=== PATIENT | male | born 1945 | race Caucasian/White ===

== ENCOUNTER 2017-07-14 03:29 | Inpatient (IN) | payer MEDICARE ==
[~2017-07-14] VITALS: Ht 177.8 cm; Wt 54.4 kg
[2017-07-14] MEDS ORDERED: ASPI-605 PO (03:36)
[2017-07-14] MEDS ORDERED: LANS15CA13 PO (03:36)
[2017-07-14] MEDS ORDERED: CHOL20004 PO (03:36)
[2017-07-14] MEDS ORDERED: CYAN10009 PO (03:36)
[2017-07-14] MEDS ORDERED: SIMV10TA6 PO (03:36)
--- NOTE | 2017-07-14 03:55 | NUR ---
PATIENT REFUSED CT HEAD. DR WANG INTO EVAL PATIENT
--- NOTE | 2017-07-14 03:59 | NUR ---
MEDICALLY CLEARED BY DR WANG
[2017-07-14] MEDS ORDERED: LORAZEPAM 0.5 MG TABLET PO PRN (04:15)
[2017-07-14] MEDS ORDERED: TEMAZEPAM 7.5 MG CAPSULE PO PRN (04:15)
[2017-07-14] MEDS ORDERED: MAG HYDROX/AL HYDROX/SIMETH 30 ML LIQUID UDC PO PRN (04:15)
[2017-07-14] MEDS ORDERED: ACETAMINOPHEN 325 MG TABLET PO PRN (04:15)
[2017-07-14 04:20] VITALS: BP 151/101
--- NOTE | 2017-07-14 05:31 | NUR ---
received to care, at 0410, on a 72 hour hold for danger to self, from the emergency room, a transfer from [facility]. according to the hold, he lives with his sister. he stated that he took an unknown amount of over the counter sleeping aids in a suicide attempt, but his sister found him, and took him to the ER. he stated that he had been despondent over aging and medical issues, and that he has had several failed suicide attempts, in the past, the last being 13 years ago, in a similar attempt, and "before that", by laceration to the neck, and other overdose attempts. upon arrival, he denied current suicidal ideations, and agreed to contract for safety, while in the hospital. he was offered assistance to go to bed, but declined, stating he would rather sit at the desk. pt remains calm and cooperative. currently being assisted with a shower. no distress noted.
[2017-07-14 08:00] VITALS: BP 128/93
[2017-07-14] MEDS ORDERED: INFLUENZA VACCINE 2017-2018 0.5 ML DISP.SYRIN IM ONE (09:00)
[2017-07-14] MEDS ORDERED: SIMVASTATIN 10 MG TABLET PO SCH (10:45)
--- NOTE | 2017-07-14 10:47 | NUR ---
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
--- NOTE | 2017-07-14 12:41 | NUR ---
Initial Discharge Instructions: Pt currently lives at home [[address] [place] [address]; [phone]]. Pt did not state if he lives with anyone, but according to chart, he lives with his sister, Lou. It is unclear at this time if pt would like to return home upon discharge. SW left message for Lou to discuss discharge plans ([phone]). ELIE will speak with pt, family, and MD regarding appropriate discharge plans. SW will form a safe and proper discharge plan.
[2017-07-14] MEDS: MAGNESIUM HYDROXIDE 30 ML LIQUID UDC PO PRN (14:38)
[2017-07-14] MEDS: ASPIRIN EC 81 MG TABLET.DR PO SCH (14:39)
[2017-07-14 16:00] VITALS: BP 138/89
[2017-07-14] MEDS: MIRTAZAPINE 15 MG TABLET PO SCH (20:23)
[2017-07-14] MEDS: SIMVASTATIN 10 MG TABLET PO SCH (20:32)
[2017-07-14 21:39] VITALS: BP 113/76
--- NOTE | 2017-07-14 22:00 | NUR ---
received to care, lying in bed, isolating by self, but pleasant upon approach. is superficial, denying having any depression, SI, or desire to harm self. remains suspicious and paranoid, wanting to see his medications in the package, before he opens it. refused his zocor, but took remeron. as of 2199, he appears to be awake, but has been sleeping intermittently. no distress noted. will continue to monitor closely.
--- NOTE | 2017-07-15 06:00 | NUR ---
slept 5.5 hours. continues to sleep. no distress noted.
[2017-07-15 07:30] VITALS: BP 119/93
[2017-07-15] MEDS: ASPIRIN EC 81 MG TABLET.DR PO SCH (08:58)
[2017-07-15] MEDS: CYANOCOBALAMIN 1,000 MCG TABLET PO SCH (08:58)
[2017-07-15 15:29] VITALS: BP 102/74
[2017-07-15 20:00] VITALS: BP 109/80
[2017-07-15] MEDS: MIRTAZAPINE 15 MG TABLET PO SCH (20:33)
[2017-07-15] MEDS: SIMVASTATIN 10 MG TABLET PO SCH (20:33)
[2017-07-16 06:33] LABS: BASOPHILS % (AUTO) 0.3 % (0.0-2.0); EOSINOPHILS % (AUTO) 0.6 % (0.0-7.0); HEMATOCRIT 41.3 % (36.7-47.1); HEMOGLOBIN 13.8 g/dL (12.5-16.3); LYMPHOCYTES # (AUTO) 0.8 K/uL (20.0-40.0); LYMPHOCYTES % (AUTO) 13.1 % (20.5-51.5); MEAN CORPUSCULAR HGB CONC 33 g/dL (32.5-36.3); MEAN CORPUSCULAR VOLUME 90.1 fL (73.0-96.2); MONOCYTES # (AUTO) 0.6 K/uL (2.0-10.0); MONOCYTES % (AUTO) 9.5 % (0.0-11.0); NEUTROPHILS # (AUTO) 4.9 K/uL (1.8-8.9); NEUTROPHILS % (AUTO) 76.5 % (38.5-71.5); PLATELET COUNT (AUTO) 141 K/uL (152-348); RED BLOOD CELL COUNT(AUTO) 4.58 MIL/uL (4.06-5.63); WHITE BLOOD COUNT (AUTO) 6.4 K/uL (3.6-10.2)
[2017-07-16 06:56] LABS: CARBON DIOXIDE 32 mmol/L (21-32); CHLORIDE 100 mmol/L (98-107); CREATININE 1.7 mg/dL (0.6-1.3); GLUCOSE 127 mg/dL (74-106); POTASSIUM 4.1 mmol/L (3.5-5.1); UREA NITROGEN, BLOOD 19 mg/dL (7-18)
--- NOTE | 2017-07-16 06:56 | NUR ---
GPS: REMAIN UNCOOPERATIVE WITH CARE AND MEDICATION.SLEPT ONLY 30 MIN THROUGH THE NIGHT. PARANOID WONDER AROUND IN AND OUT THE ROOM. CONTINUE PLAN OF CARE.
[2017-07-16 07:30] VITALS: BP 109/67
[2017-07-16] MEDS: CYANOCOBALAMIN 1,000 MCG TABLET PO SCH (08:42)
[2017-07-16] MEDS: ASPIRIN EC 81 MG TABLET.DR PO SCH (08:42)
[2017-07-16] MEDS: MAGNESIUM HYDROXIDE 30 ML LIQUID UDC PO PRN (13:19)
[2017-07-16 15:00] VITALS: BP 96/67
[2017-07-16 20:02] VITALS: BP 147/92
[2017-07-16] MEDS: MIRTAZAPINE 15 MG TABLET PO SCH (20:55)
[2017-07-16] MEDS: SIMVASTATIN 10 MG TABLET PO SCH (20:55)
[2017-07-16 21:30] VITALS: BP 121/77
--- NOTE | 2017-07-16 22:00 | NUR ---
Pt REFUSED HS MEDICATIONS DESPITE 2 ATTEMPTS BY RN AT ADMINISTERING THEM. EXTENSIVE PROMPTING AND ENCOURAGEMENT GIVEN. EDUCATION PROVIDED REGARDING DOSE, INDICATION, FREQUENCY AND REPORTABLE S/E GIVEN, Pt STILL REFUSED, STATING, "I JUST WANT TO SEE IF I LIVE THROUGH THE NIGHT, IT'S DOUBTFUL." Pt GUARDED AND WOULD NOT ELABORATE ON THE REASON FOR SAYING HE MAY NOT LIVE THROUGH THE NIGHT. Pt DID AGREE TO CFS 3 TIMES THROUGHOUT THE SHIFT. Pt WAS ASKED SEVERAL TIMES BY RN D/T HESITATION, UNRELIABILITY AND H/O MULTIPLE SA.
--- NOTE | 2017-07-16 22:32 | NUR ---
Pt STATED HE HAD A HEADACHE AND AGREED TO TAKE TYLENOL. IT WAS PULLED FROM [employer], THEN Pt CHANGED HIS MIND, AND STATED HE NO LONGER NEEDED IT.
[2017-07-17] MEDS: ASPIRIN EC 81 MG TABLET.DR PO SCH (08:21)
[2017-07-17] MEDS: CYANOCOBALAMIN 1,000 MCG TABLET PO SCH (08:21)
[2017-07-17 15:49] VITALS: BP 116/55
[2017-07-17 20:04] VITALS: BP 101/72
[2017-07-17] MEDS: MIRTAZAPINE 15 MG TABLET PO SCH (20:37)
[2017-07-17] MEDS: SIMVASTATIN 10 MG TABLET PO SCH (20:37)
--- NOTE | 2017-07-18 05:00 | NUR ---
Pt REMAINED ANXIOUS AND RESTLESS THROUGHOUT THE NIGHT. PRN MEDICATION WAS OFFERED MULTIPLE TIMES AND REFUSED. Pt SLEPT 2 HOURS. REFUSED AM SHOWER.
[2017-07-18 07:30] VITALS: BP 93/53
[2017-07-18 07:35] LABS: CARBON DIOXIDE 32 mmol/L (21-32); CHLORIDE 102 mmol/L (98-107); CREATININE 1.2 mg/dL (0.6-1.3); GLUCOSE 92 mg/dL (74-106); MAGNESIUM 2.4 mg/dL (1.8-2.4); POTASSIUM 4.5 mmol/L (3.5-5.1); UREA NITROGEN, BLOOD 17 mg/dL (7-18)
[2017-07-18] MEDS: CYANOCOBALAMIN 1,000 MCG TABLET PO SCH (08:33)
[2017-07-18] MEDS: ASPIRIN EC 81 MG TABLET.DR PO SCH (08:33)
[2017-07-18 15:39] VITALS: BP 117/79
[2017-07-18 20:24] VITALS: BP 131/88
[2017-07-18] MEDS: SIMVASTATIN 10 MG TABLET PO SCH (21:00)
[2017-07-18] MEDS: MIRTAZAPINE 15 MG TABLET PO SCH (21:00)
[2017-07-19 07:30] VITALS: BP 105/73
[2017-07-19] MEDS: CYANOCOBALAMIN 1,000 MCG TABLET PO SCH (09:55)
[2017-07-19] MEDS: ASPIRIN EC 81 MG TABLET.DR PO SCH (09:55)
--- NOTE | 2017-07-19 15:49 | NUR ---
Vice Chancellor: Millinery Teacher filed APS report for suspected self-neglect on 07/19/17. APS ID#:[id number]
[2017-07-19 16:31] VITALS: BP 126/92
[2017-07-19 20:00] VITALS: BP 127/91
[2017-07-19] MEDS: MIRTAZAPINE 15 MG TABLET PO SCH (20:20)
[2017-07-19] MEDS: SIMVASTATIN 10 MG TABLET PO SCH (20:20)
[2017-07-19] MEDS ORDERED: MIRTAZAPINE 15 MG TABLET PO ONE (20:45)
[2017-07-19] MEDS ORDERED: MIRTAZAPINE 15 MG TABLET PO SCH (21:00)
[2017-07-19] MEDS: ARIPIPRAZOLE 5 MG TABLET PO SCH (21:00)
[2017-07-20 07:30] VITALS: BP 93/62
[2017-07-20] MEDS: CYANOCOBALAMIN 1,000 MCG TABLET PO SCH (09:00)
[2017-07-20] MEDS: ASPIRIN EC 81 MG TABLET.DR PO SCH (09:12)
[2017-07-20 16:31] VITALS: BP 121/81
[2017-07-20 20:00] VITALS: BP 123/89
[2017-07-20] MEDS: MIRTAZAPINE 15 MG TABLET PO SCH (20:23)
[2017-07-20] MEDS: ARIPIPRAZOLE 5 MG TABLET PO SCH (20:23)
[2017-07-20] MEDS: SIMVASTATIN 10 MG TABLET PO SCH (20:23)
--- NOTE | 2017-07-20 22:00 | NUR ---
received to care lying in bed, isolative and no non interactive with peers, pleasant when approached, with minimal disclosure, and no eye contact. compliant with medications, but was very suspicious. as of 2199, he appears to be asleep. no distress noted. will continue to monitor closely,
--- NOTE | 2017-07-21 05:30 | NUR ---
slept 5.0 hours.
[2017-07-21 07:30] VITALS: BP 94/60
[2017-07-21] MEDS: CYANOCOBALAMIN 1,000 MCG TABLET PO SCH (09:35)
[2017-07-21] MEDS: ASPIRIN EC 81 MG TABLET.DR PO SCH (09:35)
--- NOTE | 2017-07-21 12:32 | NUR ---
Bunch Maker Hand spoke with APS Director Writing, Anahi. Per Anahi, assigned APS Bunch Maker Hand is Evelyn ([phone]). Plan for follow-up unknown at this time. ELIE will follow-up.
[2017-07-21 15:19] VITALS: BP 106/72
[2017-07-21 19:55] VITALS: BP 131/90
[2017-07-21] MEDS: SIMVASTATIN 10 MG TABLET PO SCH (20:35)
[2017-07-21] MEDS: MIRTAZAPINE 15 MG TABLET PO SCH (20:35)
[2017-07-21] MEDS: ARIPIPRAZOLE 5 MG TABLET PO SCH (20:35)
--- NOTE | 2017-07-21 22:00 | NUR ---
received to care lying in bed, isolative, but pleasant, upon approach, with god eye contact. compliant with medications, and staff direction. spoke with his sister on the telephone. as of 2199, he appears to be asleep. no distress noted. will continue to monitor closely,
--- NOTE | 2017-07-22 06:00 | NUR ---
slept 5.0 hours
[2017-07-22 08:00] VITALS: BP 128/88
[2017-07-22] MEDS: CYANOCOBALAMIN 1,000 MCG TABLET PO SCH (09:23)
[2017-07-22] MEDS: ASPIRIN EC 81 MG TABLET.DR PO SCH (09:23)
[2017-07-22 17:16] VITALS: BP 125/80
[2017-07-22 19:52] VITALS: BP 103/74
[2017-07-22] MEDS: MIRTAZAPINE 15 MG TABLET PO SCH (20:59)
[2017-07-22] MEDS: SIMVASTATIN 10 MG TABLET PO SCH (20:59)
[2017-07-22] MEDS: ARIPIPRAZOLE 5 MG TABLET PO SCH (20:59)
--- NOTE | 2017-07-22 22:00 | NUR ---
received to care lying in bed, isolative, but pleasant, upon approach, with good eye contact. compliant with medications, and staff direction, but was initially suspicious, when offered his meds. as of 2199, he appears to be asleep. no distress noted. will continue to monitor closely,
--- NOTE | 2017-07-23 06:00 | NUR ---
slept 6.0 hours
[2017-07-23 07:30] VITALS: BP 110/77
[2017-07-23] MEDS: CYANOCOBALAMIN 1,000 MCG TABLET PO SCH (09:12)
[2017-07-23] MEDS: ASPIRIN EC 81 MG TABLET.DR PO SCH (09:12)
[2017-07-23 15:00] VITALS: BP 112/71
[2017-07-23 20:05] VITALS: BP 108/58
[2017-07-23] MEDS: ARIPIPRAZOLE 5 MG TABLET PO SCH (21:06)
[2017-07-23] MEDS: MIRTAZAPINE 15 MG TABLET PO SCH (21:06)
[2017-07-23] MEDS: SIMVASTATIN 10 MG TABLET PO SCH (21:06)
[2017-07-23 21:24] LABS: *BILIRUBIN,URIN NEGATIVE (NEGATIVE); *BLOOD, URINE NEGATIVE (NEGATIVE); *COLOR,URINE YELLOW (YELLOW); *KETONES,URINE NEGATIVE (NEGATIVE); *PROTEIN,URINE NEGATIVE (NEGATIVE); *UROBILINOGEN,URINE 0.2 E.U./dl (NORMAL); LEUKOCYTE ESTERASE ,URINE 1+ (NEGATIVE); NITRITE, URINE NEGATIVE (NEGATIVE); UGLUCOSE NEGATIVE (NEGATIVE)
[2017-07-23 21:38] LABS: *CLARITY,URINE HAZY (CLEAR)
[2017-07-23 21:41] LABS: BACTERIA,URINE FEW /HPF (NONE SEEN); MUCUS,URINE FEW /LPF (0-FEW); RBC,URINE 0-3 /HPF (0-3); SQUAMOUS EPITHELIAL CELL,UR FEW /HPF (NONE SEEN); URINE AMORPHOUS PHOSPHATES FEW /HPF; WBC,URINE 20-50 /HPF (0-3)
[2017-07-23] MEDS ORDERED: SULFAMETH/TRIMETH 800/160 MG TABLET PO SCH (23:30)
[2017-07-23] MEDS ORDERED: SULFAMETH/TRIMETH 800/160 MG TABLET ONE (23:51)
--- NOTE | 2017-07-24 00:37 | NUR ---
BLADDER SCAN RESULTED IN 268ml
[2017-07-24 00:48] LABS: BASOPHILS % (AUTO) 0.7 % (0.0-2.0); EOSINOPHILS # (AUTO) 0.1 K/uL (0.0-0.7); EOSINOPHILS % (AUTO) 1.9 % (0.0-7.0); HEMATOCRIT 39.6 % (36.7-47.1); HEMOGLOBIN 13.5 g/dL (12.5-16.3); LYMPHOCYTES # (AUTO) 1.8 K/uL (20.0-40.0); LYMPHOCYTES % (AUTO) 27.5 % (20.5-51.5); MEAN CORPUSCULAR HEMOGLOBIN 30.4 uug (23.8-33.4); MEAN CORPUSCULAR HGB CONC 34 g/dL (32.5-36.3); MEAN CORPUSCULAR VOLUME 89.7 fL (73.0-96.2); MONOCYTES # (AUTO) 0.8 K/uL (2.0-10.0); MONOCYTES % (AUTO) 12.1 % (0.0-11.0); NEUTROPHILS # (AUTO) 3.8 K/uL (1.8-8.9); NEUTROPHILS % (AUTO) 57.8 % (38.5-71.5); PLATELET COUNT (AUTO) 163 K/uL (152-348); RED BLOOD CELL COUNT(AUTO) 4.42 MIL/uL (4.06-5.63); WHITE BLOOD COUNT (AUTO) 6.5 K/uL (3.6-10.2)
[2017-07-24 00:56] LABS: CARBON DIOXIDE 32 mmol/L (21-32); CHLORIDE 100 mmol/L (98-107); CREATININE 1.1 mg/dL (0.6-1.3); GLUCOSE 91 mg/dL (74-106); POTASSIUM 4.1 mmol/L (3.5-5.1); UREA NITROGEN, BLOOD 31 mg/dL (7-18)
--- NOTE | 2017-07-24 01:11 | NUR ---
UPON FIRST CONTACT WITH THE Pt AT 1930, Pt STATED HE HAD NOT URINATED IN 12 HOURS. EXCHANGE WAS CALLED AND MESSAGE LEFT FOR COVERING HOSPITALIST. THE EXCHANGE WAS CONFUSED TO WHO WAS COVERING AND CALLED BACK MULTIPLE TIMES TO ASK IF ANYONE HAD CALLED BACK, NO ONE HAD. IN THE MEAN TIME, URINE WAS COLLECTED AND SENT TO LAB FOR UA AND C+S. URINE CAME BACK POSITIVE FOR UTI WITH 1+ LEUKOCYTE ESTERASE, 20-50 WBC AND FEW BACTERIA. BLADDER WAS PALPATED AND MILD DISTENTION WITH RIGIDITY WAS NOTED. SHANNON BISHOP CALLED BACK AT APPROXIMATELY 2130, ASSESSMENT AND RESULTS WERE REPORTED AT THAT TIME. SERVICE STATION MANAGER ORDERED BLADDER SCAN AND ASKED TO BE CALLED BACK WITH RESULTS. BLADDER SCAN PERFORMED AND RESULTED IN 668ml WHICH WAS REPORTED TO SHANNON BISHOP, AT WHICH TIME HE INITIALLY ORDERED STAT LABS, CEFTRIAXONE IV, INDWELLING F/C, AND 1:1 SITTER. NURSING TELECOMMUNICATIONS LINESWORKER RAHEL INFORMED OF ORDER FOR 1:1 SITTER. UPON REVIEW OF LABS, SHANNON KAY CHANGED CEFTRIAXONE ORDER TO BACTRIM PO WHICH WAS ADMINISTERED ORDERED. THIS INFORMATION WAS GIVEN TO Pt WHO INITIALLY AGREED ONLY TO STRAIGHT CATH, THEN CHANGED HIS MIND AND STATED HE WOULD AGREE TO INDWELLING CATH. SHANNON BISHOP ORDERED BLADDER SCAN Q 2 HOURS UNTIL F/C WAS PLACED. 2ND BLADDER SCAN SHOWED 262ml. WILL CONTINUE TO FREQUENTLY MONITOR.
--- NOTE | 2017-07-24 01:41 | NUR ---
GPS/NSG 2315 Dr. Turk contacted to consult and clarify order given for IV antibiotic treatment requiring a 1:1 for safety. Order for Bactrim DS twice a day was obtained with first dose to be administered tonight. Continue all other orders previously given, bladder scan every two hours, CBC, BMP, Mcintyre insertion with 1:1 for safety.
--- NOTE | 2017-07-24 01:58 | NUR ---
GPS/NSG 0030 Dr. Turk contacted to update patient's output, bladder scan result as well as review order requiring a 1:1 for safety. Order received to continue with previous order to insert Mcintyre. Will continue to monitor closely.
--- NOTE | 2017-07-24 02:08 | NUR ---
GPS/NSG 0200 Dr. Turk contacted to report lab findings. No new orders obtained, will continue to monitor patient closely.
--- NOTE | 2017-07-24 02:37 | NUR ---
F/C INSERTION ATTEMPT UNSUCCESSFUL RESISTANCE IN THE URETHRA, AND Pt REQUESTING TO TAKE THE TUBE OUT SECONDARY TO DISCOMFORT. COMPENSATION/BENEFITS SPECIALIST BISHOP NOTIFIED, NO NEW ORDERS. WILL KEEP THE 1:1 ORDER ACTIVE 2ND ATTEMPT WILL BE MADE AT A LATER TIME.
--- NOTE | 2017-07-24 04:30 | NUR ---
BLADDER SCAN RESULTED IN 212ml
--- NOTE | 2017-07-24 06:39 | NUR ---
Pt REFUSED 629 BLADDER SCAN, STATED HE WAS "TOO TIRED"
[2017-07-24 07:30] VITALS: BP 111/78
--- NOTE | 2017-07-24 08:00 | NUR ---
PT STATED HE JUST URINATED. RESIDUAL BLADDER VOLUME 0ML
[2017-07-24] MEDS: CYANOCOBALAMIN 1,000 MCG TABLET PO SCH (09:00)
[2017-07-24] MEDS: SULFAMETH/TRIMETH 800/160 MG TABLET PO SCH ×3 (09:00→21:29)
[2017-07-24] MEDS: ASPIRIN EC 81 MG TABLET.DR PO SCH (09:49)
--- NOTE | 2017-07-24 10:00 | NUR ---
PT IS RESTING, DOES NOT WANT BLADDER SCAN
--- NOTE | 2017-07-24 12:00 | NUR ---
BLADDER SCAN IS 227ML
--- NOTE | 2017-07-24 14:00 | NUR ---
PT REFUSED BLADDER SCAN
[2017-07-24 15:00] VITALS: BP 116/81
--- NOTE | 2017-07-24 16:00 | NUR ---
RESIDUAL BLADDER 0ML
--- NOTE | 2017-07-24 18:00 | NUR ---
PT DOES NOT WANT BLADER SCAN AT THIS TIME
[2017-07-24 20:00] VITALS: BP 124/86
[2017-07-24] MEDS: MIRTAZAPINE 15 MG TABLET PO SCH (21:29)
[2017-07-24] MEDS: ARIPIPRAZOLE 5 MG TABLET PO SCH (21:29)
[2017-07-24] MEDS: SIMVASTATIN 10 MG TABLET PO SCH (21:29)
--- NOTE | 2017-07-25 06:53 | NUR ---
RECEIVED Pt IN HIS ROOM READING. A+Ox3. EXHIBITS BLUNTED AFFECT AND PRESSURED SPEECH. Pt TAKES LONG PAUSES BEFORE ANSWERING QUESTIONS, APPEARS TO BE THOUGHT BLOCKING. DENIES SI AND DOES CFS, BUT SEEMS APPREHENSIVE AND UNRELIABLE FOR SAFETY AT THIS TIME. Pt GUARDED AND GIVES MINIMAL INFORMATION. Pt APPEARS FEARFUL AND PARANOID OF MEDICATIONS AND INITIALLY REFUSED, THEN SAID HE WOULD "THINK ABOUT IT". AT 2129, AFTER SOME PROMPTING AND ENCOURAGEMENT, Pt AGREED TO TAKE HIS MEDICATIONS. Pt MORE RESTRICTED AND GUARDED THIS SHIFT, APPEARS TO BE DECOMPENSATING. DENIES HI/VH/AH, BUT APPEARS INTERNALLY PREOCCUPIED. Pt IS ISOLATIVE TO HIMSELF AND RECLUSIVE TO HIS ROOM. Pt REFUSED BLADDER SCANS STATING, "I WANT TO SLEEP TONIGHT, AND I HAVE BEEN PEEING MORE TODAY". DENIES ANY DYSURIA. NO AGGRESSIVE OR COMBATIVE BEHAVIORS. VS STABLE, DENIES PAIN.
[2017-07-25 07:30] VITALS: BP 112/78
[2017-07-25] MEDS: SULFAMETH/TRIMETH 800/160 MG TABLET PO SCH ×2 (08:53→20:46)
[2017-07-25] MEDS: CYANOCOBALAMIN 1,000 MCG TABLET PO SCH (08:53)
[2017-07-25] MEDS: ASPIRIN EC 81 MG TABLET.DR PO SCH (08:53)
[2017-07-25 15:00] VITALS: BP 106/66
[2017-07-25 19:30] VITALS: BP 131/92
[2017-07-25] MEDS: SIMVASTATIN 10 MG TABLET PO SCH (20:46)
[2017-07-25] MEDS: MIRTAZAPINE 15 MG TABLET PO SCH (20:46)
[2017-07-25] MEDS: ARIPIPRAZOLE 5 MG TABLET PO SCH (20:46)
--- NOTE | 2017-07-25 22:58 | NUR ---
Received patient in his room. He was noted A/O x 3 able to ambulate with steady gait and able to make his needs know. He is noted withdrawn, remains mainly in his room, reading a book. He is medication compliant at this time. He denies SI or HI at this time. Patient was informed of possible discharged tomorrow, He stated that he was not ready to be discharged because no family member could be available to pick him up. Pt able to contract for safety at this time.
[2017-07-26 07:30] VITALS: BP 98/57
[2017-07-26] MEDS: ASPIRIN EC 81 MG TABLET.DR PO SCH (08:34)
[2017-07-26] MEDS: CYANOCOBALAMIN 1,000 MCG TABLET PO SCH (08:34)
[2017-07-26] MEDS: SULFAMETH/TRIMETH 800/160 MG TABLET PO SCH (08:34)
--- NOTE | 2017-07-26 10:45 | NUR ---
GPS: Nursing Notes: Refusing for Picture to be Taken: Patient is refusing for staff to take a picture of his back, "You have a picture already...", continue with his discharge process, continue with treatment plan.
--- NOTE | 2017-07-26 13:30 | NUR ---
DC Note: Patient will be discharged home with his sister [[address], [place] [address]; [phone]] via private transportation between 2:30 and 3pm. Spoke with patient's sister, Lou ([phone]) who is willing to provide transportation and is agreeable with discharge plans. Patient is aware and agreeable with discharge plans. Patient will follow-up with his Primary Care Physician Dr. Gavin Balderas [[address] [facility] [address], [place] [address]; ] and was given Medicare Referral list for outpatient Psychiatrist follow-up. The list includes: [phone]; [phone]; [phone]. The patient was also given a list of Mental Health Referrals including: [facility] Crisis Line ( ); Lauren Arias ( ); and the National Suicide Prevention Lifeline ( ).
--- NOTE | 2017-07-26 14:28 | NUR ---
GPS: Nursing Notes: Discharge Notes: Patient is awake and responding to his name, compliant with his medications, and following staff directions at times, denies any SI/HI, denies any AH/VH, denies any pain or discomfort, needs prompting to participate in therapeutic groups, discharge home with his sister, Lou at [address] [place] [address] , picked up by his sister Lou, transported home via private vehicle, prescriptions and instructions given to patient and his sister. Patient will follow-up with his Primary Care Physician Dr. Gavin Balderas [[id number] [facility] [address], [place] [address]; ] and was given Medicare Referral list for outpatient Psychiatrist follow-up. The list includes: [phone]; [phone]; [phone]. The patient was also given a list of Mental Health Referrals including: [facility] Crisis Line ( ); Lauren Arias ( ); and the National Suicide Prevention Lifeline ( ).
== END 2017-07-26 14:30 | disposition home or self-care (01) | DRG 885 ==
LOC: ER 03:35 → GPS 04:01
PROVIDERS: ADMIT Psychiatry & Neurology Psychiatry; ATTEND Internal Medicine
DX: F33.3 Major depressive disorder, recurrent, severe with psychotic symptoms (principal); N17.0 Acute kidney failure with tubular necrosis; N18.9 Chronic kidney disease, unspecified; N39.0 Urinary tract infection, site not specified; R45.851 Suicidal ideations; E44.1 Mild protein-calorie malnutrition; Z68.1 Body mass index [BMI] 19.9 or less, adult; I12.9 Hypertensive chronic kidney disease with stage 1 through stage 4 chronic kidney disease, or unspecified chronic kidney disease; E78.5 Hyperlipidemia, unspecified; I25.10 Atherosclerotic heart disease of native coronary artery without angina pectoris; K21.9 Gastro-esophageal reflux disease without esophagitis; B96.89 Other specified bacterial agents as the cause of diseases classified elsewhere; Z85.46 Personal history of malignant neoplasm of prostate; Z91.5 Personal history of self-harm; Z79.899 Other long term (current) drug therapy
CPT/HCPCS: 36415; 83735; 85025; 87086; 90686; A4663